=== PATIENT | male | born 1990 | race Caucasian/White ===

== ENCOUNTER 2018-10-11 11:36 | Emergency (ER) | payer OTHER ==
--- NOTE | 2018-10-11 12:30 | ED Physician Documentation ---
PD HPI PED ILLNESS - Stated complaint Stated Complaint: HEADACHE - Chief complaint Chief Complaint: Heent - History obtained from History obtained from: Patient - History of Present Illness Timing - onset: Other (He has been sick for about a week with runny nose, but over the last 3 days has had bilateral sinus pressure and congestion without fevers. He is tried some [id number] medications without relief. No recent travel. No underlying health problems.) Review of Systems Constitutional: denies: Fever, Chills Eyes: denies: Loss of vision, Decreased vision Ears: denies: Ear pain Nose: reports: Rhinorrhea / runny nose, Congestion, Sinus pressure / pain Throat: denies: Sore throat PD PAST MEDICAL HISTORY - Past Surgical History Past Surgical History: No - Present Medications Home Medications: Ambulatory Orders Medication Instructions Recorded Confirmed Guaifenesin/Pseudoephedrne HCl 1 each PO BID PRN #20 tab.er.12h 10/11/18 [Mucinex D ER 600-60 mg Tablet] Ibuprofen [Motrin] 800 mg PO Q8H PRN #30 tablet 10/11/18 Mometasone Furoate [Nasonex] 1 spray NS BID #1 spray.pump 10/11/18 - Allergies Allergies/Adverse Reactions: Allergies Allergy/AdvReac Type Severity Reaction Status Date / Time No Known Drug Allergies Allergy Verified 10/11/18 11:46 - Social History Does the pt smoke?: Yes Smoking Status: Current every day smoker Does the pt drink ETOH?: Yes Does the pt have substance abuse?: No - Immunizations Immunizations are current?: Yes - POLST Patient has POLST: No PD ED PE NORMAL - Vitals Vital signs reviewed: Yes - General General: Alert and oriented X 3, No acute distress - HEENT HEENT: PERRL, EOMI, Ears normal, Other (No sinus tenderness. The nasal mucosa especially on the left are swollen. Oropharynx is normal.) - Neck Neck: Supple, no meningeal sign, No bony TTP - Neuro Neuro: Alert and oriented X 3, Normal speech Results - Vitals Vitals: Vital Signs - 24 hr 10/11/18 11:44 Temperature 36.7 C Heart Rate 105 H Respiratory 18 Rate Blood Pressure 124/85 H O2 Saturation 96 Oxygen O2 Source Room air PD MEDICAL DECISION MAKING - ED course ED course: This is a 28-year-old gentleman With a sinus infection that is likely viral and he does not fit IDSA criteria for antibiotic treatment at this juncture. Departure - Departure Disposition: 01 Home, Self Care Clinical Impression: Viral sinusitis Condition: Good Record reviewed to determine appropriate education?: Yes Instructions: ED Sinusitis No Abx Prescriptions: Guaifenesin/Pseudoephedrne HCl [Mucinex D ER 600-60 mg Tablet] 1 each PO BID PRN #20 tab.er.12h PRN Reason: congestion Ibuprofen [Motrin] 800 mg PO Q8H PRN #30 tablet PRN Reason: PAIN &/OR FEVER Mometasone Furoate [Nasonex] 1 spray NS BID #1 spray.pump Comments: Follow-up with your physician tomorrow as scheduled. As discussed, at this juncture you do not fit the infectious disease Society of [place] guidelines for antibiotic treatment for bacterial sinusitis. If you are still sick in a week or get better and then get worse again or develop a high fever that would no longer be true and please be reevaluated if that is the case. Your blood pressure was elevated today on check into the emergency department. This does not mean that you have hypertension, it is a common phenomenon to come to the emergency department and have elevated blood pressure. I recommend that you see your primary care physician within the week to have it rechecked when you are feeling better. Forms: Activity restrictions
[2018-10-11 12:36] VITALS: BP 116/74
== END 2018-10-11 12:36 | disposition home or self-care (01) ==
LOC: ED 11:36
DX: J32.9 Chronic sinusitis, unspecified (principal); B97.89 Other viral agents as the cause of diseases classified elsewhere; F17.200 Nicotine dependence, unspecified, uncomplicated
CPT/HCPCS: 99283

== ENCOUNTER 2020-01-22 19:01 | Emergency (ER) | payer OTHER ==
[2020-01-22 19:21] VITALS: BP 115/82
--- NOTE | 2020-01-22 19:27 | ED Physician Documentation ---
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 He is getting ready to move to [place] and was moving furniture at home and his hand got crushed between a dresser and a bed frame and he has mild pain in the area of the fourth and fifth right metacarpals. No other injuries.) Review of Systems Constitutional: reports: Reviewed and negative Eyes: reports: Reviewed and negative Throat: reports: Reviewed and negative Cardiac: reports: Reviewed and negative PD PAST MEDICAL HISTORY - Past Surgical History Past Surgical History: No - Present Medications Home Medications: Ambulatory Orders Medication Instructions Recorded Confirmed Guaifenesin/Pseudoephedrne HCl 1 each PO BID PRN #20 tab.er.12h 10/11/18 [Mucinex D ER 600-60 mg Tablet] Ibuprofen [Motrin] 800 mg PO Q8H PRN #30 tablet 10/11/18 Mometasone Furoate [Nasonex] 1 spray NS BID #1 spray.pump 10/11/18 - Allergies Allergies/Adverse Reactions: Allergies Allergy/AdvReac Type Severity Reaction Status Date / Time No Known Drug Allergies Allergy Verified 10/11/18 11:46 - Social History Does the pt smoke?: Yes Smoking Status: Current every day smoker Does the pt drink ETOH?: Yes Does the pt have substance abuse?: No - Immunizations Immunizations are current?: Yes - POLST Patient has POLST: No PD ED PE NORMAL - Vitals Vital signs reviewed: Yes - General General: Alert and oriented X 3, No acute distress - Extremities Extremities: Other (He has swelling over the fourth and fifth metacarpals distally but relatively intact range of motion and no loss of saccade. Mild tenderness.) - Neuro Neuro: Alert and oriented X 3, Normal speech Results - Vitals Vitals: Vital Signs - 24 hr 01/22/20 19:19 Temperature 37.1 C Heart Rate 93 Respiratory 16 Rate Blood Pressure 115/82 H O2 Saturation 98 Oxygen O2 Source Room air - Rads (name of study) R hand 3v Radiology: EMP read contemporaneously (normal) Departure - Departure Disposition: 01 Home, Self Care Clinical Impression: Crushing injury of right hand Qualifiers: Encounter type: initial encounter Qualified Code(s): S67.21XA - Crushing injury of right hand, initial encounter Condition: Good Record reviewed to determine appropriate education?: Yes Instructions: ED Crush Injury Finger No Fx Comments: Tylenol or ibuprofen as needed for pain, follow-up with your doctor in a week if not better. Return if worse. Discharge Date/Time: 01/22/20 20:01
--- NOTE | 2020-01-22 20:12 | XRAY Report ---
Reason: hand inj Procedure Date: 01/22/2020 Accession Number: [id number] / [id number] Procedure: XR - Hand 3 View RT CPT Code: Final Report FULL RESULT: EXAM: RIGHT HAND RADIOGRAPHY EXAM DATE: 01/22/2020 07:40 PM. CLINICAL HISTORY: Hand inj. COMPARISON: [facility]ST 4 VIEW RT 03/17/2016 5:27 PM. TECHNIQUE: 3 views. FINDINGS: Bones: Normal. No fractures or bone lesions. Joints: Normal. No subluxations. Soft Tissues: Normal. No soft tissue swelling. IMPRESSION: Normal hand radiography. [facility]
== END 2020-01-22 20:01 | disposition home or self-care (01) ==
LOC: ED 19:01
DX: S67.21XA Crushing injury of right hand, initial encounter (principal); W23.0XXA Caught, crushed, jammed, or pinched between moving objects, initial encounter; Y93.E6 Activity, residential relocation; Y92.009 Unspecified place in unspecified non-institutional (private) residence as the place of occurrence of the external cause; F17.200 Nicotine dependence, unspecified, uncomplicated
CPT/HCPCS: 99283